=== PATIENT | male | born 1970 | race Caucasian/White ===

== ENCOUNTER 2016-12-12 13:59 | Inpatient (IN) | payer OTHER ==
[~2016-12-12] VITALS: Ht 180.3 cm; Wt 100.1 kg
[~2016-12-12 13:59] MED LIST: ALBU0.086 INH; ALBU0.63 NEB; ALBU8I INH; FLOV44AE IN; LEVO50TA4 PO; LIPI10TA PO; PRED10PA PO; TEGR400T PO
[2016-12-19] MEDS ORDERED: POVIDONE IODINE 7.5% SCRUB 118 ML BOTTLE TOP SCH (05:45)
[2016-12-19] MEDS: EXPAREL PERI-ARTICULAR INJECTION (TOTAL VOL. 60 ML) P-ARTICULR SCH ×4 (05:45→15:03)
[2016-12-19] MEDS: TRANEXAMIC ACID INJ 915 MG in SODIUM CHLORIDE 0.9% INJ 100 ML IV SCH ×2 (05:45→14:45)
[2016-12-19] MEDS ORDERED: DEXAMETHASONE SOD PHOS 20 MG/5 ML VIAL IV PRN (06:00)
[2016-12-19] MEDS ORDERED: INSULIN HUMAN REGULAR 1,000 UNITS/10 ML VIAL SQ PRN (06:00)
[2016-12-19] MEDS ORDERED: METOPROLOL TARTRATE 25 MG TAB PO PRN (06:00)
[2016-12-19] MEDS ORDERED: LACTATED RINGER'S 1000 ML IV SCH (06:00)
[2016-12-19] MEDS ORDERED: SODIUM CHLORID 0.9% 500 ML IV SCH (06:00)
[2016-12-19] MEDS ORDERED: GENTAMICIN SULFATE 80 MG/2 ML VIAL ONE (06:02)
[2016-12-19] MEDS ORDERED: TEGR400T PO (06:03)
[2016-12-19] MEDS ORDERED: ATOR10TA15 PO (06:03)
[2016-12-19] MEDS ORDERED: LEVO50TA4 PO (06:03)
[2016-12-19] MEDS ORDERED: ALBU0.63 NEB (06:03)
[2016-12-19] MEDS ORDERED: ALBU6.7H INH (06:03)
[2016-12-19 06:06] VITALS: BP 153/96; PULSE 82; RESP 20; TEMP 97.9; O2SAT 97
[2016-12-19] MEDS: ceFAZolin 2 GM PREMIX 50 ML IV SCH ×2 (06:18→15:03)
[2016-12-19] MEDS: VANCOMYCIN 1000 MG/NS 250 ML (for <70 kg) IV SCH ×4 (06:19→11:15)
[2016-12-19] MEDS: CHLORHEXIDINE GLUCONATE 4% SOLN 120 ML BTL TOP SCH (06:42)
--- NOTE | 2016-12-19 06:52 | HHI.DCPOC ---
Discharge Care Plan Diagnosis: (1) Osteoarthritis of right hip (2) Status post total hip replacement, right Your Health Problems Are: Difficulty with ADL Goals to Promote Your Health * To prevent worsening of your condition and complications * To maintain your health at the optimal level Directions to Meet Your Goals Take your medications as prescribed Follow your dietary instruction Follow activity as directed Keep your appointments as scheduled Take your immunizations and boosters as scheduled If your symptoms worsen call your PCP, if no PCP go to Urgent Care Center or Emergency Room Smoking is Dangerous to Your Health. Avoid second hand smoke Call the 24-hour hour crisis hotline for domestic abuse at Ari Castellon Dec 19, 2016 06:52
--- NOTE | 2016-12-19 06:53 | HHI.FF ---
Face to Face Verification Diagnosis: (1) Status post total hip replacement, right (2) Osteoarthritis of right hip Physical Therapy Gait training, Transfer training, bed to chair Hip: Total hip Right LE Weight Bearing: WB as tolerated Right LE Range of Motion: Active ROM Nursing Nursing: Maru teaching, Dressing changes Dressing Changes: Daily dressing change I have seen patient Keven Lloyd on 12/19/16. My clinical findings support the need for the requested home health care services because: Limited ability to care for self High risk of falls I certify that my clinical findings support that this patient is homebound because: Post-op weakness Unsteady gait/balance Ari Castellon Dec 19, 2016 06:53
[2016-12-19] MEDS ORDERED: WALKER WHEELS/F1 MIS (06:56)
[2016-12-19] MEDS ORDERED: COMMODE 3-IN-11 MIS (06:56)
[2016-12-19] MEDS ORDERED: RESP: ALBUTEROL 2.5 MG/IPRATROPIUM 0.5 MG NEB (SCH) ONE (09:27)
[2016-12-19] MEDS ORDERED: ONDANSETRON HCL 4 MG/2 ML VIAL IV PUSH ONE (12:12)
[2016-12-19] MEDS ORDERED: NEOSTIGMINE 3 MG/3 ML SYR IV ONE (12:12)
[2016-12-19] MEDS ORDERED: PROPOFOL 200 MG/20 ML AMP IV ONE (12:12)
[2016-12-19] MEDS ORDERED: LACTATED RINGER'S 1000 ML INJ 1,000 ML IV ONE (12:12)
[2016-12-19] MEDS ORDERED: MIDAZOLAM HCL 2 MG/2 ML VIAL ONE (14:11)
[2016-12-19] MEDS ORDERED: ACETAMINOPHEN 1000 MG/100 ML VIAL IV ONE (14:13)
[2016-12-19] MEDS ORDERED: SUGAMMADEX SODIUM 200 MG/2 ML VIAL IV PUSH ONE ×2 (16:15)
--- NOTE | 2016-12-19 16:26 | PD.OP ---
cc: Jaime Cavazos MD Operative Report Date of Surgery: Dec 19, 2016 Preoperative Diagnosis: Right hip avascular necrosis, severe osteoarthritis. Postoperative Diagnosis: Same Procedure: Right total hip arthroplasty Anesthesia: Gen. Surgeon: Jaime Cavazos Dividend Deposit Entry Clerk(s): RIOS Waters The surgical procedure was assisted by my Advanced Registered Nurse Practitioner. My RIGGING [employer] CONTROLS AIRCRAFT MECHANIC presence was necessary throughout this case for the manipulation and positioning of the surgical extremity. My RIGGING AND CONTROLS AIRCRAFT MECHANIC was assisting me throughout the duration of this procedure. The skill set of an Advance Registered Nurse Practitioner was medically necessary to complete this procedure. During the surgical case, the surgical rn was working at the back table and the Advance Registered Nurse Practitioner was directly assisting me. Operation and Findings: IMPLANT DESCRIPTION: 1. [place] Gription Cup, acetabular size 58. 2. [place] AltrX polyethylene, neutral. 4. [place] femoral stem size 13, no collar, high offset. 5. Femoral head/neck ceramic, 36, +5.0. ESTIMATED BLOOD LOSS: 400 cc. JUSTIFICATION FOR PROCEDURE: The patient has end-stage osteoarthritis to the hip. There is an attached conservative measures pathway form in the chart that describes the nonoperative measures that were undertaken prior to consideration of surgical management. The patient understood the risks and benefits of surgical management. See my office notes for further details. PROCEDURE: The patient was brought back to the operative theatre. Adequate anesthesia was obtained. The patient received intravenous vancomycin and Ancef. The patient was carefully placed on the operative table. The lower extremity was prepped and draped in the usual sterile fashion. Fluoroscopic images were obtained. We made a standard anterior incision over the hip. We dissected through the TFL fascia, exposing the anterior capsule. Arthrotomy was performed in a T-shaped fashion. The capsule was tagged with a #2 FiberWire. End-stage arthritis was identified. Osteotomy was performed through the femoral neck exposing the acetabulum. Remnants of the labrum were resected and osteophytes were removed. We sequentially reamed the acetabulum. We trialed the hip and placed the final cup into position. This was done under fluoroscopic guidance to obtain the appropriate inclination and anteversion. A manhole cover was placed into the acetabular component. We then placed the final polyethylene into position and confirmed that it was well seated. Capsular attachments on the calcar and the inner aspect of the greater trochanter were resected. On the proximal aspect of the femur we used a rongeur , box osteotome, canal finder, sequential broaches and lateralizing rasp. We calcar planed the proximal femur. Then thoroughly irrigated the wound. We trialed the hip with the appropriate size stem. We placed the final stem in to position and trialed again. The hip was stable while it was externally rotated 70 degrees when the leg was lowered to the floor. The final head was applied, and final fluoroscopic images were obtained. The wound was thoroughly irrigated again. Interarticular injection of liposomal bupivacaine was given. The capsule was closed with #2 FiberWire and #1 Vicryl. The deep fascia was closed with a #2 Stratafix, followed by 2-0 Vicryl in the skin and pb. Postop plan is to weight-bear as tolerated. DVT prophylaxis will be performed with [place], ALANA castle, early mobilization, and Lovenox followed by aspirin. Jaime Cavazos MD Dec 19, 2016 16:26
[2016-12-19] MEDS ORDERED: NORC5TAB PO (16:27)
[2016-12-19] MEDS ORDERED: ASPI325T PO (16:27)
[2016-12-19] MEDS ORDERED: ENOX40P SQ (16:27)
[2016-12-19] MEDS ORDERED: diphenhydrAMINE HCL 50 MG/ML VIAL IV PRN (16:30)
[2016-12-19] MEDS ORDERED: ACETAMINOPHEN/HYDROcodone 325 MG/5 MG TAB PO PRN (16:30)
[2016-12-19] MEDS ORDERED: Post-op Orders (for Pharmacy) MISC XX ONE (16:30)
[2016-12-19] MEDS ORDERED: ALUMINUM/MAGNESIUM/SIMETH 30 ML CUP PO PRN (16:30)
[2016-12-19] MEDS ORDERED: ONDANSETRON HCL 4 MG/2 ML VIAL IVP PRN (16:30)
[2016-12-19] MEDS ORDERED: SODIUM CHLORIDE 0.9% FLUSH 5 ML FLUSH IVF PRN (16:30)
[2016-12-19] MEDS ORDERED: ZOLPIDEM TARTRATE 5 MG TAB PO PRN (16:30)
[2016-12-19] MEDS ORDERED: BISACODYL 10 MG SUPP PR PRN (16:30)
[2016-12-19] MEDS ORDERED: MORPHINE SULFATE 4 MG/ML INJ IV PUSH PRN (16:30)
[2016-12-19] MEDS ORDERED: MAGNESIUM HYDROXIDE SUSP 30 ML CUP PO PRN (16:30)
[2016-12-19] MEDS ORDERED: ALBUTEROL SULFATE 90 MCG/ACT HFA 8 GM INHALER INH PRN (16:30)
[2016-12-19] MEDS ORDERED: NALOXONE HCL 0.4 MG/ML AMP IV PRN (16:30)
[2016-12-19] MEDS ORDERED: RESP: ALBUTEROL 0.63 MG/3 ML NEB (PRN) NEB (16:30)
[2016-12-19] MEDS ORDERED: DO NOT ADM ANY ANTICOAGULANT DRUGS XX PRN (16:45)
--- NOTE | 2016-12-19 16:51 | RADRPT ---
EXAM DATE/TIME: 12/19/2016 15:03 [facility] COMPARISON: No previous studies available for comparison. INDICATIONS : ORIF Right hip anterior approach. MEDICAL HISTORY : None. SURGICAL HISTORY : None. ENCOUNTER: Subsequent ACUITY: 1 day PAIN SCORE: Non-responsive. LOCATION: Right Hip FINDINGS: There is placement of total hip prosthesis well seated with surgical resection of the femoral head an d neck CONCLUSION: Well-seated total hip prosthesis Wilver Lee MD on December 19, 2016 at 16:49 Board Certified Radiologist. This report was verified electronically.
[2016-12-19] MEDS: SODIUM CHLOR 0.9% 1000 ML INJ 1,000 ML IV SCH (16:55)
[2016-12-19] MEDS ORDERED: fentaNYL CITRATE 250 MCG/5 ML AMP ONE (17:00)
[2016-12-19] MEDS ORDERED: *ONDANSETRON 4 MG VIAL PERIprocedural Use ONLY ONE (17:06)
[2016-12-19] MEDS ORDERED: TRANEXAMIC ACID INJ 915 MG in SODIUM CHLORIDE 0.9% INJ 100 ML IV SCH (17:30)
[2016-12-19] MEDS ORDERED: *morphine SULFATE 8 MG/ML PERIprocedure ONLY ONE (17:39)
--- NOTE | 2016-12-19 17:41 | RADRPT ---
EXAM DATE/TIME: 12/19/2016 17:12 [facility] COMPARISON: HIP RIGHT AP ONLY WO AP PELVIS, December 19, 2016, 15:03. INDICATIONS : Status post ORIF right hip. MEDICAL HISTORY : None. SURGICAL HISTORY : None. ENCOUNTER: Subsequent ACUITY: 1 day PAIN SCORE: Non-responsive. LOCATION: Right Hip FINDINGS: Right total hip prosthesis remains in place well-seated with superficial surgical pb. Pelvis its elf is intact. CONCLUSION: Intact pelvis. Right total hip prosthesis well seated Wilver Lee MD on December 19, 2016 at 17:39 Board Certified Radiologist. This report was verified electronically.
[2016-12-19] MEDS ORDERED: CARBAMAZEPINE 400 MG PO SCH (18:00)
[2016-12-19] MEDS ORDERED: *MEPERIDINE 25 MG INJ VIAL PERIprocedural Use ONLY ONE (18:04)
[2016-12-19] MEDS ORDERED: *PROMETHAZINE 25 MG/ML VIAL PERIprocedural use ONLY ONE (18:09)
[2016-12-19] MEDS: SODIUM CHLORIDE 0.9% FLUSH 5 ML FLUSH IVF SCH (21:00)
[2016-12-19 21:35] VITALS: BP 99/61; PULSE 79; RESP 16; TEMP 97.9; O2SAT 98
[2016-12-19] MEDS: ATORVASTATIN 10 MG TAB PO SCH (22:06)
[2016-12-19] MEDS: carBAMazepine XR 200 MG TAB PO SCH (22:53)
[2016-12-20] VITALS (7 sets, daily range): BP systolic 113–148; BP diastolic 53–69; PULSE 89–115; RESP 16–20; TEMP 97.3–99.5; O2SAT 96–99
[2016-12-20] MEDS: ACETAMINOPHEN/HYDROcodone 325 MG/5 MG TAB PO PRN ×5 (02:03→23:01)
[2016-12-20] MEDS: SODIUM CHLOR 0.9% 1000 ML INJ 1,000 ML IV SCH ×2 (02:30→14:00)
[2016-12-20 05:00] LABS: HEMATOCRIT 36.4 % (39.0-51.0); MEAN CELL VOLUME 86.3 FL (80.0-100.0); MEAN CORPUSCULAR HEMOGLOBIN 29.7 PG (27.0-34.0); MEAN CORPUSCULAR HGB CONC 34.5 % (32.0-36.0); PLATELET COUNT 189 TH/MM3 (150-450); RED BLOOD COUNT 4.22 MIL/MM3 (4.50-5.90); RED CELL DISTRIBUTION WIDTH 13.3 % (11.6-17.2); REVIEW FLAG FINAL; WHITE BLOOD COUNT 9.5 TH/MM3 (4.0-11.0)
[2016-12-20] MEDS: LEVOTHYROXINE SODIUM 50 MCG TAB PO SCH (06:01)
[2016-12-20] MEDS: CHLORHEXIDINE GLUCONATE 4% SOLN 120 ML BTL TOP SCH (06:23)
[2016-12-20] MEDS ORDERED: DEXAMETHASONE SOD PHOS 20 MG/5 ML VIAL IV ONE (07:45)
[2016-12-20] MEDS: carBAMazepine XR 200 MG TAB PO SCH ×3 (10:02→18:55)
[2016-12-20] MEDS: SODIUM CHLORIDE 0.9% FLUSH 5 ML FLUSH IVF SCH ×2 (10:03→23:05)
--- NOTE | 2016-12-20 12:43 | PD.ORT.PN ---
Subjective Post Op Day #: 1 Subjective Remarks Patient resting comfortably in bed with mild to moderate right hip pain. Patient states he is not quite ready for discharge today. Patient wants to work with PT again before being discharged. Objective Vitals Vital Signs Date Time Temp Pulse Resp B/P Pulse Ox O2 Delivery O2 Flow Rate FiO2 12/20/16 12:04 98.1 90 16 124/61 97 12/20/16 08:32 99 21 12/20/16 08:16 98.8 93 16 113/53 96 12/20/16 04:00 97.5 91 20 147/68 96 12/19/16 21:35 97.9 79 16 99/61 98 12/19/16 21:15 85 16 97 Room Air 12/19/16 21:00 97.8 82 16 118/69 97 Room Air 12/19/16 20:00 86 16 116/65 96 Room Air 12/19/16 19:30 84 16 119/66 95 Room Air 12/19/16 19:00 97.8 85 15 120/69 99 Nasal Cannula 2 12/19/16 18:45 87 15 123/70 99 Nasal Cannula 2 12/19/16 18:30 98 15 127/78 99 Nasal Cannula 2 12/19/16 18:15 101 15 127/86 98 Nasal Cannula 2 12/19/16 18:00 102 15 129/88 98 Nasal Cannula 2 12/19/16 17:45 107 15 138/86 98 Nasal Cannula 2 12/19/16 17:44 15 12/19/16 17:30 98.2 109 15 138/92 99 Nasal Cannula 2 12/19/16 17:15 112 14 162/86 100 Nasal Cannula 2 12/19/16 17:00 121 16 158/99 100 Nasal Cannula 2 12/19/16 16:50 98.5 120 15 143/92 97 Nasal Cannula 2 I/O 12/19/16 12/19/16 12/19/16 12/20/16 12/20/16 12/20/16 07:00 15:00 23:00 07:00 15:00 23:00 Intake Total 650 ml 1300 ml 364 ml Output Total 1000 ml 600 ml 300 ml Balance -350 ml 700 ml 64 ml Intake Oral 0 ml 364 ml IV Total 350 ml 300 ml TPN/PPN 300 ml Other 1000 ml Output Urine Total 1000 ml 250 ml 300 ml Estimated Blood Loss 200 ml Other 150 ml Result Diagram: 12/20/16 0420 Imaging Last 24 hours Impressions Hip and Pelvis X-Ray 12/19/16 1623 Signed Impressions: Service Date/Time: Monday, December 19, 2016 17:12 - CONCLUSION: Intact pelvis. Right total hip prosthesis well seated Wilver Lee MD Procedures Right JORDY Objective Remarks The patient's dressing is C/D/I. EHL/TA/G intact. 2+ pedal pulse. Minimal swelling. Calf is soft and nontender. + SILT. Assessment & Plan Ortho Post Op Day #: 1 Problem List: Assessment and Plan POD #1: Right JORDY 1. WBAT RLE 2. Lovenox for DVT prophylaxis 3. Ice to the right hip PRN 4. Anticipatory discharge home with home health on Saturday. Ari Castellon Dec 20, 2016 12:43
[2016-12-20] MEDS: ENOXAPARIN SODIUM 40 MG/0.4 ML SYRINGE SQ SCH (15:43)
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
[2016-12-20] MEDS ORDERED: RESP: ALBUTEROL 2.5 MG/IPRATROPIUM 0.5 MG NEB (PRN) NEB (17:15)
[2016-12-20] MEDS ORDERED: MULTIVITAMINS/MINERALS THERAPEUTIC TAB PO SCH (21:00)
[2016-12-20] MEDS: ATORVASTATIN 10 MG TAB PO SCH (23:01)
[2016-12-20] MEDS: MULTIVITAMIN TAB PO SCH (23:01)
[2016-12-20] MEDS: DOCUSATE SODIUM 100 MG CAP PO SCH (23:01)
[2016-12-21] VITALS: BP 115/62; PULSE 113; RESP 16; TEMP 99.8; O2SAT 96
[2016-12-21] MEDS: ACETAMINOPHEN/HYDROcodone 325 MG/5 MG TAB PO PRN ×4 (04:23→16:14)
[2016-12-21] MEDS: LEVOTHYROXINE SODIUM 50 MCG TAB PO SCH (06:12)
[2016-12-21] MEDS: CHLORHEXIDINE GLUCONATE 4% SOLN 120 ML BTL TOP SCH (06:45)
[2016-12-21 07:09] LABS: HEMATOCRIT 28.1 % (39.0-51.0); MEAN CELL VOLUME 84.6 FL (80.0-100.0); MEAN CORPUSCULAR HGB CONC 35.4 % (32.0-36.0); PLATELET COUNT 141 TH/MM3 (150-450); RED BLOOD COUNT 3.32 MIL/MM3 (4.50-5.90); RED CELL DISTRIBUTION WIDTH 13.1 % (11.6-17.2); REVIEW FLAG FINAL; WHITE BLOOD COUNT 8.4 TH/MM3 (4.0-11.0)
[2016-12-21 08:00] VITALS: BP 138/69; PULSE 100; RESP 24; TEMP 97.8; O2SAT 97
[2016-12-21] MEDS: MULTIVITAMIN TAB PO SCH (08:51)
[2016-12-21] MEDS: DOCUSATE SODIUM 100 MG CAP PO SCH (08:51)
[2016-12-21] MEDS: SODIUM CHLORIDE 0.9% FLUSH 5 ML FLUSH IVF SCH (08:51)
[2016-12-21] MEDS: carBAMazepine XR 200 MG TAB PO SCH ×2 (08:51→12:34)
[2016-12-21] MEDS: SODIUM CHLOR 0.9% 1000 ML INJ 1,000 ML IV SCH ×2 (08:51)
[2016-12-21 12:00] VITALS: BP 135/65; PULSE 109; RESP 24; TEMP 97.8; O2SAT 98
--- NOTE | 2016-12-21 12:52 | HHI.PR ---
Subjective Remarks Patient reports that he is feeling well today. Pain is controlled. He is ready for discharge. Objective Vitals Vital Signs Date Time Temp Pulse Resp B/P Pulse Ox O2 Delivery O2 Flow Rate FiO2 12/21/16 08:00 97.8 100 24 138/69 97 12/21/16 00:00 99.8 113 16 115/62 96 12/20/16 20:20 98 12/20/16 20:00 99.5 115 16 148/69 97 12/20/16 16:30 97.3 89 18 122/60 97 I/O 12/20/16 12/20/16 12/20/16 12/21/16 12/21/16 12/21/16 07:00 15:00 23:00 07:00 15:00 23:00 Intake Total 364 ml 860 ml 240 ml 240 ml Output Total 300 ml 250 ml 410 ml Balance 64 ml 860 ml -10 ml -170 ml Intake Oral 364 ml 860 ml 240 ml 240 ml Output Urine Total 300 ml 250 ml 410 ml # Voids 4 1 # Bowel Movements 0 0 0 Result Diagram: 12/21/16 0625 Imaging Last Impressions Hip and Pelvis X-Ray 12/19/16 1623 Signed Impressions: Service Date/Time: Monday, December 19, 2016 17:12 - CONCLUSION: Intact pelvis. Right total hip prosthesis well seated Wilver Lee MD Hip X-Ray 12/19/16 0000 Signed Impressions: Service Date/Time: Monday, December 19, 2016 15:03 - CONCLUSION: Well- seated total hip prosthesis Wilver Lee MD Objective Remarks GENERAL: This is a well-nourished, well-developed patient, in no apparent distress. CARDIOVASCULAR: Normal rate and regular rhythm without murmurs, gallops, or rubs. RESPIRATORY: Good respiratory efforts. Breath sounds equal and clear to auscultation bilaterally. GASTROINTESTINAL: Abdomen soft, non-tender, non-distended. Normal active bowel sounds MUSCULOSKELETAL: Postop right hip dressing is clean and dry. NEURO: Alert & Oriented x4 to person, place, time, situation. Moves all ext x4 PSYCH: Appropriate mood and affect. A/P Problem List: (1) Osteoarthritis of right hip ICD Code: M16.11 Status: Acute (2) Status post total hip replacement, right ICD Code: Z96.641 Status: Acute Assessment and Plan 46-year-old male with: Osteoarthritis of the right hip status post total hip arthroplasty: - Continue routine postop care per orthopedics. - Pain control. PT. Patient cleared for discharge to home with home health and physical therapy. Asthma: Continue albuterol inhaler as needed. Hypothyroidism: Continue Synthroid Hyperlipidemia: Continue statin Seizure disorder: Continue Tegretol Hospitalist cleared for discharge. Anirudh Aguilar MD Dec 21, 2016 12:52
--- NOTE | 2016-12-21 15:18 | PD.ORT.PN ---
Subjective Post Op Day #: 2 Subjective Remarks Patient resting comfortably in bed with mild right hip pain. Patient states he is ready for discharge home today. Objective Vitals Vital Signs Date Time Temp Pulse Resp B/P Pulse Ox O2 Delivery O2 Flow Rate FiO2 12/21/16 08:00 97.8 100 24 138/69 97 12/21/16 00:00 99.8 113 16 115/62 96 12/20/16 20:20 98 12/20/16 20:00 99.5 115 16 148/69 97 12/20/16 16:30 97.3 89 18 122/60 97 I/O 12/20/16 12/20/16 12/20/16 12/21/16 12/21/16 12/21/16 07:00 15:00 23:00 07:00 15:00 23:00 Intake Total 364 ml 860 ml 240 ml 240 ml Output Total 300 ml 250 ml 410 ml Balance 64 ml 860 ml -10 ml -170 ml Intake Oral 364 ml 860 ml 240 ml 240 ml Output Urine Total 300 ml 250 ml 410 ml # Voids 4 1 # Bowel Movements 0 0 0 Result Diagram: 12/21/16 0625 Imaging Last 24 hours Impressions Hip and Pelvis X-Ray 12/19/16 1623 Signed Impressions: Service Date/Time: Monday, December 19, 2016 17:12 - CONCLUSION: Intact pelvis. Right total hip prosthesis well seated Wilver Lee MD Procedures Right JORDY Objective Remarks The patient's dressing was changed with scant serosanguineous drainage. Incision is well approximated with surgical clips intact. No redness or s/s of infection. EHL/TA/G intact. 2+ pedal pulse. No swelling. Calf is soft and nontender. + SILT. Assessment & Plan Ortho Post Op Day #: 2 Problem List: Assessment and Plan POD #2: Right JORDY 1. WBAT RLE 2. Lovenox for DVT prophylaxis 3. Ice to the right hip PRN 4. Stable for discharge home with home health today. Ari Castellon Dec 21, 2016 15:18
[2016-12-21] MEDS: ENOXAPARIN SODIUM 40 MG/0.4 ML SYRINGE SQ SCH (16:13)
--- NOTE | 2016-12-22 17:16 | HHI.DS ---
Discharge Summary Admission Date Dec 19, 2016 at 05:28 Discharge Date: Dec 21, 2016 Admitting Diagnosis OA of the right hip Status post total hip replacement, right Diagnosis: (1) Status post total hip replacement, right Diagnosis: Principal (2) Osteoarthritis of right hip Diagnosis: Principal Procedures Right JORDY Brief History This is a 46 year old male patient with severe OA of the right hip CBC/BMP: 12/21/16 0625 Significant Findings Laboratory Tests Test 12/20/16 12/21/16 04:20 06:25 Red Blood Count 4.22 MIL/MM3 3.32 MIL/MM3 (4.50-5.90) (4.50-5.90) Hemoglobin 12.5 GM/DL 10.0 GM/DL (13.0-17.0) (13.0-17.0) Hematocrit 36.4 % 28.1 % (39.0-51.0) (39.0-51.0) Platelet Count 141 TH/MM3 (150-450) PE at Discharge The patient's dressing was changed with scant serosanguineous drainage. Incision is well approximated with surgical clips intact. No redness or s/s of infection. EHL/TA/G intact. 2+ pedal pulse. No swelling. Calf is soft and nontender. + SILT. Hospital Course The patient was admitted to the hospital for severe OA of the right hip to have a right JORDY. The patient's surgery went well without complication. The patient had a normal hospital course. The patient is WBAT with the use of a walker. The patient was discharged home with home health and will f/u in the office with Dr. Cavazos in 1-2 weeks. Pt Condition on Discharge: Stable Discharge Disposition: Disch w/ Home Health Serv Discharge Instructions Diet Instructions: As Tolerated, No Restrictions Activities You Can Perform: Weight Bearing as Maryann Activities to Avoid: Strenuous Activity Follow up Referrals: Orthopedics with Jaime Cavazos MD SN[facility]/ with Nurse Seamer [employer]ose New Medications: Aspirin (Aspirin) 325 Mg Tab 325 MG PO DAILY Start Aspirin after Lovenox is completed. Prevent Blood Clot # 30 Ref 0 TAB Commode 3-in-1 (Commode 3-in-1) 1 Mis Mis 1 EA .ROUTE DIRECTED #1 Ref 0 EA Enoxaparin Inj (Lovenox Inj) 40 Mg/0.4 Ml Syr 40 MG SQ DAILY Start Aspirin after Lovenox is completed. Blood Clot Prevention # 10 Ref 0 [place] Hydrocodone-Acetaminophen ([place]) 5-325 mg Tab 1-2 TAB PO Q4H PRN PAIN #60 Ref 0 TAB Walker with Front Wheels (Walker with Front Wheels) 1 Mis Mis 1 EA .ROUTE DIRECTED #1 Ref 0 EA Continued Medications: Albuterol 6.7 GM Inh (Proventil Hfa 6.7 GM Inh) 90 Mcg/Act Aer 1 PUFF INH Q4H PRN SHORTNESS OF BREATH #1 Ref 0 INHALER Albuterol Neb (Albuterol Neb) 0.63 Mg/3 Ml Neb 0.63 MG NEB QID NEB PRN SHORTNESS OF BREATH #125 Ref 0 NEBULE Atorvastatin (Atorvastatin) 10 Mg Tab 10 MG PO HS Cholesterol Management #30 Ref 0 TAB Carbamazepine ER 12 HR (Tegretol-Xr 12 HR) 400 Mg Tab 400 MG PO TID #60 Ref 0 TAB Levothyroxine (Levothyroxine) 50 Mcg Tab 50 MCG PO DAILY Thyroid #30 Ref 0 TAB Ari Castellon Dec 22, 2016 17:16
== END 2016-12-21 16:24 | disposition home health service (06) | DRG 470 ==
LOC: HSDI 12-19 05:28 → N06A 12-19 21:23
PROVIDERS: ADMIT Orthopaedic Surgery; ATTEND Orthopaedic Surgery
PROC: 0SR904A Replacement of Right Hip Joint with Ceramic on Polyethylene Synthetic Substitute, Uncemented, Open Approach (ICD-10-PCS; principal; 2016-12-19 14:14)
DX: M16.11 Unilateral primary osteoarthritis, right hip (principal); M87.88 Other osteonecrosis, other site; J44.9 Chronic obstructive pulmonary disease, unspecified; E78.5 Hyperlipidemia, unspecified; J45.909 Unspecified asthma, uncomplicated; G40.909 Epilepsy, unspecified, not intractable, without status epilepticus; E03.9 Hypothyroidism, unspecified; Z98.2 Presence of cerebrospinal fluid drainage device; Z87.891 Personal history of nicotine dependence
CPT/HCPCS: 73501; 73502; 76000; 85027; 86850; 86900; 86901; 94150; 94664; C1776; C9290; J0131; J0690; J1100; J1580; J1650; J2175; J2250; J2270; J2405; J2550; J2710; J3010; J3370; J7030; J7050; J7120

== ENCOUNTER 2017-05-04 03:32 | Inpatient (IN) | payer OTHER ==
[2017-05-04] VITALS (11 sets, daily range): BP systolic 111–182; BP diastolic 59–104; PULSE 91–140; RESP 15–40; TEMP 98.1–99.6; O2SAT 93–100
[~2017-05-04] VITALS: Ht 180.3 cm; Wt 99.5 kg
[~2017-05-04 03:32] MED LIST changes: -ALBU0.086 INH; +ALBU6.7H INH; -ALBU8I INH; +ASPI325T PO; +ATOR10TA15 PO; +COMMODE 3-IN-11 MIS; +ENOX40P SQ; -FLOV44AE IN; -LIPI10TA PO; +NORC5TAB PO; -PRED10PA PO; +WALKER WHEELS/F1 MIS
[2017-05-04] MEDS ORDERED: SODIUM CHLORIDE 0.9% FLUSH 10 ML FLUSH IVF PRN (03:45)
[2017-05-04] MEDS ORDERED: methylPREDNISolone SOD SUCC 125 MG/2 ML VIAL IVP ONE (03:45)
[2017-05-04] MEDS ORDERED: LIOT5TAB3 PO (03:58)
[2017-05-04 04:10] LABS: AUTOMATED NEUTROPHIL # 5.5 TH/MM3 (1.8-7.7); BASOPHIL % 0.4 % (0.0-2.0); EOSINOPHIL # 0.7 TH/MM3 (0-0.4); EOSINOPHIL % 5.2 % (0.0-4.0); HEMATOCRIT 43.7 % (39.0-51.0); LYMPH % 44.6 % (9.0-44.0); LYMPHOCYTE # 5.9 TH/MM3 (1.0-4.8); MEAN CELL VOLUME 84.7 FL (80.0-100.0); MEAN CORPUSCULAR HEMOGLOBIN 28.7 PG (27.0-34.0); MEAN CORPUSCULAR HGB CONC 33.8 % (32.0-36.0); MONO % 8.6 % (0.0-8.0); NEUT % 41.2 % (16.0-70.0); PLATELET COUNT 237 TH/MM3 (150-450); RED BLOOD COUNT 5.16 MIL/MM3 (4.50-5.90); RED CELL DISTRIBUTION WIDTH 14.6 % (11.6-17.2); WHITE BLOOD COUNT 13.3 TH/MM3 (4.0-11.0)
[2017-05-04] MEDS: RESP: ALBUTEROL 2.5 MG/IPRATROPIUM 0.5 MG NEB (SCH) INH ×2 (04:16→04:17)
--- NOTE | 2017-05-04 04:17 | PD ---
HPI Chief Complaint: Respiratory Distress Time Seen by Provider: 03:45 Travel History International Travel<30 days: No Contact w/Intl Traveler<30days: No Traveled to known affect area: No History of Present Illness HPI 47-year-old male presents by ambulance for shortness of breath. When they arrived on scene they gave him a breathing treatment than he had spasms of his arms and went unconscious. They were bag valve masking him as he came in. While we were drawing up medications patient started to come to and notes he has seizure disorder that he takes Tegretol for. He does not recall recent episode. He does note that he's been short of breath tonight. History limited given clinical condition PFSH Past Medical History Narrative Medical By records Asthma: Yes Blood Disorders: No Cancer: No Cardiovascular Problems: No COPD: Yes Diabetes: No Diminished Hearing: No Endocrine: No Genitourinary: No Hepatitis: No Hiatal Hernia: No Immune Disorder: No Musculoskeletal: Yes (OA) Psychiatric: No Reproductive: No Respiratory: Yes (COPD, ASTHMA, PNEUMOTHORAX hemothorax) Seizures: Yes Sleep Apnea: No Thyroid Disease: Yes Past Surgical History Narrative Surgical by records Abdominal Surgery: Yes (ABDOMINAL hernia, LACERATED LIVER REPAIR) AICD: No Body Medical Devices: MANAGER WIRELESS SHUNT aneurysm clips Cardiac Surgery: Yes (VENOUS MALFORMATION WITH SURGERY 1976) Ear Surgery: No Eye Surgery: No Genitourinary Surgery: Yes (LACERATED KIDNEY ) Gynecologic Surgery: No Joint Replacement: No Neurologic Surgery: Yes (craniotomy/ MANAGER WIRELESS SHUNT ) Oral Surgery: No Pacemaker: No Thoracic Surgery: Yes (CHEST TUBE) Other Surgery: Yes (4 AVM; CEREBRAL HEMATOMA REMOVAL, MANAGER WIRELESS SHUNT) Social History Alcohol Use: No Tobacco Use: No Substance Use: No Allergies-Medications (Allergen,Severity, Reaction): Coded Allergies: Contrast Media (Verified Allergy, Severe, ANAPHYLAXIS, 05/04/17) Iodine (Verified Allergy, Severe, Anaphylaxis, 05/04/17) Shellfish (Verified Allergy, Severe, Anaphylaxis, 05/04/17) Uncoded Allergies: no mri (Adverse Reaction, Mild, 05/04/17) metal throughout body Reported Meds & Prescriptions Reported Meds & Active Scripts Active [place] (Hydrocodone-Acetaminophen) 5-325 mg Tab 1-2 Tab PO Q4H PRN Walker with Front Wheels (Device) 1 Mis Mis 1 Ea .ROUTE DIRECTED Reported Liothyronine (Liothyronine Sodium) 5 Mcg Tab 5 Mcg PO DAILY Levothyroxine (Levothyroxine Sodium) 50 Mcg Tab 50 Mcg PO DAILY Tegretol-Xr 12 HR (Carbamazepine) 400 Mg Tab 400 Mg PO TID Proventil Hfa 6.7 GM Inh (Albuterol Sulfate) 90 Mcg/Act Aer 1 Puff INH Q4H PRN Albuterol Neb (Albuterol Sulfate) 0.63 Mg/3 Ml Neb 0.63 Mg NEB QID NEB PRN Review of Systems Except as stated in HPI: all other systems reviewed are Neg Physical Exam Exam Limitations: Poor Historian Narrative GENERAL: Well-nourished, well-developed patient. SKIN: Warm and dry. HEAD: atraumatic. EYES: No injection or drainage. Pupils equal ENT: No nasal drainage noted. NECK: Supple, trachea midline. CARDIOVASCULAR: Tachycardic rate and regular rhythm RESPIRATORY: Decreased and wheezing bilaterally. No accessory muscle use. GASTROINTESTINAL: Abdomen soft, nondistended. NEUROLOGICAL: Initially unresponsive but then became awake and alert with motor and sensory grossly within normal limits Data Data Last Documented VS Vital Signs Date Time Temp Pulse Resp B/P Pulse Ox O2 Delivery O2 Flow Rate FiO2 05/04/17 03:50 100 BiPAP 100 05/04/17 03:44 140 40 182/104 Orders Complete Blood Count With Diff (05/04/17 03:45) Comprehensive Metabolic Panel (05/04/17 03:45) B-Type Natriuretic Peptide (05/04/17 03:45) Act Partial Throm Time (Ptt) (05/04/17 03:45) Prothrombin Time / Inr (Pt) (05/04/17 03:45) Magnesium (Mg) (05/04/17 03:45) Ckmb (Isoenzyme) Profile (05/04/17 03:45) Troponin I (05/04/17 03:45) Urinalysis - C+S If Indicated (05/04/17 03:45) Influenzae A/B Antigen (05/04/17 03:45) Blood Culture (05/04/17 03:45) Iv Access Insert/Monitor (05/04/17 03:45) Electrocardiogram (05/04/17 03:45) Ecg Monitoring (05/04/17 03:45) Oximetry (05/04/17 03:45) Oxygen Administration (05/04/17 03:45) Chest, Single Ap (05/04/17 03:45) Sodium Chloride 0.9% Flush (Ns Flush) (05/04/17 03:45) Methylprednisolone So Succ Inj (Solumedr (05/04/17 03:45) Albuterol-Ipratropium Neb (Duoneb Neb) (05/04/17 03:45) Resp Bipap / Cpap Non Invas Vt (05/04/17 03:45) Carbamazepine (Tegretol) (05/04/17 03:45) Lactic Acid (05/04/17 04:45) Arterial Blood Gas (Abg) (05/04/17 ) Sodium Chlor 0.9% 1000 Ml Inj (Ns 1000 M (05/04/17 05:30) Admit Order (Ed Use Only) (05/04/17 06:06) Labs Laboratory Tests Test 05/04/17 05/04/17 03:50 05:05 White Blood Count 13.3 TH/MM3 Red Blood Count 5.16 MIL/MM3 Hemoglobin 14.8 GM/DL Hematocrit 43.7 % Mean Corpuscular Volume 84.7 FL Mean Corpuscular Hemoglobin 28.7 PG Mean Corpuscular Hemoglobin 33.8 % Concent Red Cell Distribution Width 14.6 % Platelet Count 237 TH/MM3 Mean Platelet Volume 8.8 FL Neutrophils (%) (Auto) 41.2 % Lymphocytes (%) (Auto) 44.6 % Monocytes (%) (Auto) 8.6 % Eosinophils (%) (Auto) 5.2 % Basophils (%) (Auto) 0.4 % Neutrophils # (Auto) 5.5 TH/MM3 Lymphocytes # (Auto) 5.9 TH/MM3 Monocytes # (Auto) 1.1 TH/MM3 Eosinophils # (Auto) 0.7 TH/MM3 Basophils # (Auto) 0.0 TH/MM3 CBC Comment AUTO DIFF Prothrombin Time 10.6 SEC Prothromb Time International 1.0 RATIO Ratio Activated Partial 24.2 SEC Thromboplast Time Sodium Level 142 MEQ/L Potassium Level 3.7 MEQ/L Chloride Level 107 MEQ/L Carbon Dioxide Level 26.6 MEQ/L Anion Gap 8 MEQ/L Blood Urea Nitrogen 11 MG/DL Creatinine 0.89 MG/DL Estimat Glomerular Filtration 91 ML/MIN Rate Random Glucose 151 MG/DL Calcium Level 8.5 MG/DL Magnesium Level 2.1 MG/DL Total Bilirubin 0.2 MG/DL Aspartate Amino Transf 11 U/L (AST/SGOT) Alanine Aminotransferase 28 U/L (ALT/SGPT) Alkaline Phosphatase 112 U/L Total Creatine Kinase 79 U/L Troponin I LESS THAN 0.02 NG/ML B-Type Natriuretic Peptide 13 PG/ML Total Protein 8.3 GM/DL Albumin 3.9 GM/DL Carbamazepine (Tegretol) Level 13.8 MCG/ML Lactic Acid Level 1.7 mmol/L MDM Medical Decision Making Medical Screen Exam Complete: Yes Emergency Medical Condition: Yes Medical Record Reviewed: Yes (past history confirmed) Interpretation(s) EKG is sinus tachycardia at 130 without STEMI criteria CBC & BMP Diagram 05/04/17 03:50 Last 24 hours Impressions Chest X-Ray 05/04/17 0345 Signed Impressions: Service Date/Time: Saturday, May 04, 2017 04:10 - CONCLUSION: No acute disease. Anson Deluca MD Differential Diagnosis Asthma exacerbation, pneumonia, URI, pneumothorax, seizure disorder, renal failure Narrative Course Will check blood work, chest x-ray and now awake and alert place on BiPAP, dose with Solu-Medrol and DuoNeb's and reevaluate Patient is improving on BiPAP. ABG shows pH 7.34, PCO2 44, PO2 of 117 on current BiPAP settings. Will continue and closely monitor. Patient has not had additional seizure here in Tegretol level is actually high. Patient shows no signs of pneumonia or infection. It appears he has had a severe asthma exacerbation. Patient agrees to admission to the hospital. Critical Care Narrative Aggregate critical care time was 35 minutes. Time to perform other separately billable procedures was not included in the critical care time. My time did not include minutes spent treating any other patients simultaneously or on activities that did not directly contribute to the patient's treatment. The services I provided to this patient were to treat and/or prevent clinically significant deterioration that could result in: respiratory failure I provided critical care services requiring my management, as noted below: Chart data review, documentation time, medication orders and management, vital sign assessments/reviewing monitor data, ordering and reviewing lab tests, ordering and interpreting/reviewing x-rays and diagnostic studies, care of the patient and discussion of the patient with the admitting physicians. Physician Communication Physician Communication dr corbin states to admit to the icu Diagnosis Primary Impression: Asthma exacerbation Additional Impression: Seizure Admitting Information Admitting Physician Requests: Admit Danae Stewart MD May 04, 2017 04:17
[2017-05-04 04:18] LABS: HEMO FLAGS AUTO DIFF
[2017-05-04 04:33] LABS: APTT (PATIENT) 24.2 SEC (24.3-30.1); PROTHROMBIN TIME - PATIENT 10.6 SEC (9.8-11.6)
[2017-05-04 04:36] LABS: ALT (GPT) 28 U/L (12-78); ANION GAP 8 MEQ/L (5-15); AST (GOT) 11 U/L (15-37); BICARBONATE 26.6 MEQ/L (21.0-32.0); BLOOD UREA NITROGEN 11 MG/DL (7-18); CHLORIDE 107 MEQ/L (98-107); GLOMERULAR FILTRATION RATE 91 ML/MIN (>89); MAGNESIUM 2.1 MG/DL (1.5-2.5); POTASSIUM 3.7 MEQ/L (3.5-5.1); SODIUM (NA) 142 MEQ/L (136-145)
[2017-05-04 04:40] LABS: ALKALINE PHOSPHATASE 112 U/L (45-117); TOTAL BILIRUBIN ADULT 0.2 MG/DL (0.2-1.0)
[2017-05-04 04:42] LABS: CREATINE KINASE 79 U/L (39-308)
--- NOTE | 2017-05-04 04:47 | RADRPT ---
EXAM DATE/TIME: 05/04/2017 04:10 [facility] COMPARISON: CHEST SINGLE AP, March 22, 2016, 11:36. INDICATIONS : Pt short of breath. MEDICAL HISTORY : Chronic obstructive pulmonary disease. asthma, Seizures, history of Pneumothorax and hemothorax SURGICAL HISTORY : Craniotomy. ICT ANALYST shunt, Cerebral hematoma removal ENCOUNTER: Initial ACUITY: 1 day PAIN SCORE: 5/10 LOCATION: Bilateral chest FINDINGS: A single view of the chest demonstrates the lungs to be symmetrically aerated without evidence of mas s, infiltrate or effusion. The cardiomediastinal contours are unremarkable. Osseous structures are intact. Overlying ventriculoperitoneal shunt catheter tubing is present. CONCLUSION: No acute disease. Anson Deluca MD on May 04, 2017 at 4:45 Board Certified Radiologist. This report was verified electronically.
[2017-05-04] MEDS ORDERED: SODIUM CHLOR 0.9% 1000 ML INJ 1,000 ML IV ONE (05:30)
[2017-05-04] MEDS ORDERED: LACTULOSE SYRUP 20 GM/30 ML CUP PO PRN (06:15)
[2017-05-04] MEDS ORDERED: MORPHINE SULFATE 4 MG/ML INJ IV PRN (06:15)
[2017-05-04] MEDS ORDERED: ACETAMINOPHEN 325 MG TAB PO PRN (06:15)
[2017-05-04] MEDS ORDERED: MISCELLANEOUS NURSING INFORMATION XX SCH (06:15)
[2017-05-04] MEDS ORDERED: CHLORHEXIDINE GLUCONATE 2 % 1 PACK (2 CLOTHS) TOP PRN (06:15)
[2017-05-04] MEDS ORDERED: RESP: ALBUTEROL 2.5 MG/3 ML NEB (PRN) NEB (06:15)
[2017-05-04] MEDS ORDERED: LORazepam 2 MG/ML VIAL IV PUSH PRN (06:15)
[2017-05-04] MEDS ORDERED: MAGNESIUM HYDROXIDE SUSP 30 ML CUP PO PRN (06:15)
[2017-05-04] MEDS ORDERED: BISACODYL 10 MG SUPP RECTAL PRN (06:15)
[2017-05-04] MEDS ORDERED: SODIUM CHLORIDE 0.9% FLUSH 10 ML FLUSH IV FLUSH PRN (06:15)
[2017-05-04] MEDS ORDERED: SENNOSIDES 8.6 MG TAB PO PRN (06:15)
[2017-05-04] MEDS ORDERED: ONDANSETRON HCL 4 MG/2 ML VIAL IVP PRN (06:15)
[2017-05-04] MEDS: SODIUM CHLOR 0.9% 1000 ML INJ 1,000 ML IV SCH ×2 (06:32→16:07)
[2017-05-04] MEDS: LEVOFLOXACIN 750 MG PREMIX INJ 150 ML IV SCH (06:33)
[2017-05-04 06:51] LABS: BASOPHILS 2 % (0-2); EOSINOPHILS 4 % (0-4); NEUTROPHIL # MANUAL DIFF 5.6 TH/MM3 (1.8-7.7); POLYS (SEG NEUTROPHILS) 42 % (16-70); WBC DIFF SAMPLE 100
[2017-05-04 06:52] LABS: PLATELET ESTIMATE SMEAR NORMAL (NORMAL); PLATELET MORPHOLOGY NORMAL (NORMAL); SCAN/DIFF FINAL DIFF MANUAL
[2017-05-04] MEDS: RESP: ALBUTEROL 2.5 MG/3 ML NEB (SCH) NEB ×4 (07:47→19:57)
[2017-05-04 08:51] LABS: BLOOD, URINE NEG (NEG); GLUCOSE,URINE NEG (NEG); KETONE, URINE NEG (NEG); MUCUS URINE FEW /lpf (OCC); NITRITE,URINE NEG (NEG); PH, URINE 5.5 (5.0-8.5); TRANSITIONAL EPI CELLS, URINE <1 /hpf; URINE COLOR LIGHT-YELLOW (YELLW/STRAW)
[2017-05-04 08:52] LABS: COMMENT (UR) CULT NOT INDICATED; CULTURE IF INDICATED CULT NOT INDICATED
[2017-05-04] MEDS: SODIUM CHLORIDE 0.9% FLUSH 10 ML FLUSH IV FLUSH SCH ×2 (09:00→20:39)
[2017-05-04] MEDS ORDERED: DOCUSATE SODIUM 50 MG/SENNA 8.6 MG TAB PO SCH (09:00)
[2017-05-04] MEDS: guaiFENesin E.R. 600 MG TAB PO SCH ×2 (09:55→20:39)
[2017-05-04] MEDS: BUDESONIDE-FORMOTEROL 160/4.5 MCG INHALER INH SCH ×2 (09:56→20:39)
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
[2017-05-04] MEDS: methylPREDNISolone SOD SUCC 40 MG/1 ML VIAL IV PUSH SCH ×3 (11:35→23:22)
[2017-05-04] MEDS ORDERED: CHLORHEXIDINE GLUCONATE 2 % 1 PACK (2 CLOTHS)(extra cloths) TOPICAL PRN (16:30)
[2017-05-04] MEDS: carBAMazepine XR 200 MG TAB PO SCH (18:27)
--- NOTE | 2017-05-04 19:52 | MB ---
cc: ELIZABETH PALENCIA DATE OF CONSULTATION 05/04/17 REASON FOR CONSULTATION History of seizure disorder. HISTORY OF PRESENT ILLNESS Mr. Lloyd is a nice 47-year-old man who has a history of seizures. He takes Tegretol XR 400milligrams t.i.d. has had no seizures in 10 years. Yesterday he was eating some type of pepper saucer which triggered an asthma attack. He had severe short of breath but no seizure activity. PAST HISTORY He has a brain AVM resected surgically, asthma, hyperlipidemia, hyperthyroidism, seizure disorder, LEATHER COVERER shunt placement. MEDICATIONS Medications are: 1. Cytomel. 2. Synthroid. 3. Tegretol-XR 400 milligrams t.i.d. 4. Symbicort. 5. Mucinex. 6. Albuterol. NEUROLOGIC EXAMINATION VITAL SIGNS: Blood pressure is 122/71, pulse 97, respiratory rate 19, temperature 98.6 degrees. NEURO: Higher cortical functions normal. Cranial nerves II-XII are normal in detail. Motor exam he has 5/5 strength of all groups. There is no drift. Reflexes symmetric. LABORATORY DATA His white count 13,300. Hemoglobin 14.8, hematocrit 43.7%, platelets 237,000. PT 10.6, INR 1, APTT 24.2. Sodium 142, potassium to 3.7, chloride 107, CO2 26.6, BUN is 11, creatinine 0.89. Tegretol level 13.8. IMPRESSION History of seizure, stable on current dose of Tegretol. While his level is on the high side he is tolerating it well, has been on this dose for 10 years with no seizures. Therefore, I would not change his Tegretol. It does not appear he had a recurrent seizure yesterday. MD EDIS Griffith/FELICIANO /5:05 PM /7:41 PM
[2017-05-05] VITALS (7 sets, daily range): BP systolic 98–133; BP diastolic 51–77; PULSE 74–85; RESP 16–17; TEMP 98.5–99.1; O2SAT 97
[2017-05-05] MEDS: SODIUM CHLOR 0.9% 1000 ML INJ 1,000 ML IV SCH ×2 (03:16→11:47)
[2017-05-05] MEDS ORDERED: CHLORHEXIDINE GLUCONATE 2 % 1 PACK (2 CLOTHS) TOP SCH (04:00)
[2017-05-05] MEDS ORDERED: CHLORHEXIDINE GLUCONATE 2 % 1 PACK (2 CLOTHS)(taper/protocol) TOPICAL SCH (04:00)
[2017-05-05] MEDS: methylPREDNISolone SOD SUCC 40 MG/1 ML VIAL IV PUSH SCH ×2 (05:31→11:47)
[2017-05-05] MEDS: LEVOFLOXACIN 750 MG PREMIX INJ 150 ML IV SCH (05:31)
[2017-05-05 06:30] LABS: AUTOMATED NEUTROPHIL # 12.9 TH/MM3 (1.8-7.7); BASOPHIL % 0.1 % (0.0-2.0); HEMATOCRIT 40.5 % (39.0-51.0); HEMO FLAGS DIFF FINAL; LYMPH % 7.1 % (9.0-44.0); MEAN CELL VOLUME 84.9 FL (80.0-100.0); MEAN CORPUSCULAR HEMOGLOBIN 28.2 PG (27.0-34.0); MEAN CORPUSCULAR HGB CONC 33.2 % (32.0-36.0); MONO % 5.1 % (0.0-8.0); NEUT % 87.7 % (16.0-70.0); PLATELET COUNT 196 TH/MM3 (150-450); RED BLOOD COUNT 4.77 MIL/MM3 (4.50-5.90); RED CELL DISTRIBUTION WIDTH 14.4 % (11.6-17.2); WHITE BLOOD COUNT 14.7 TH/MM3 (4.0-11.0)
[2017-05-05 06:57] LABS: ALT (GPT) 27 U/L (12-78); ANION GAP 12 MEQ/L (5-15); AST (GOT) 5 U/L (15-37); BICARBONATE 23.1 MEQ/L (21.0-32.0); BLOOD UREA NITROGEN 13 MG/DL (7-18); CHLORIDE 109 MEQ/L (98-107); GLOMERULAR FILTRATION RATE 92 ML/MIN (>89); POTASSIUM 4.2 MEQ/L (3.5-5.1); SODIUM (NA) 144 MEQ/L (136-145)
[2017-05-05 07:00] LABS: ALKALINE PHOSPHATASE 94 U/L (45-117); TOTAL BILIRUBIN ADULT 0.2 MG/DL (0.2-1.0)
[2017-05-05] MEDS: carBAMazepine XR 200 MG TAB PO SCH ×2 (07:39→13:50)
[2017-05-05] MEDS: guaiFENesin E.R. 600 MG TAB PO SCH (07:40)
[2017-05-05] MEDS: BUDESONIDE-FORMOTEROL 160/4.5 MCG INHALER INH SCH (07:40)
[2017-05-05] MEDS: SODIUM CHLORIDE 0.9% FLUSH 10 ML FLUSH IV FLUSH SCH (07:40)
[2017-05-05] MEDS: RESP: ALBUTEROL 2.5 MG/3 ML NEB (SCH) NEB ×2 (07:44→11:41)
[2017-05-05] MEDS ORDERED: LEVOTHYROXINE SODIUM 50 MCG TAB PO SCH (09:00)
[2017-05-05] MEDS ORDERED: LIOTHYRONINE SODIUM 5 MCG TAB PO SCH (09:00)
--- NOTE | 2017-05-05 09:53 | EKG ---
Date Performed: 05/04/2017 Time Performed: 03:50:40 PTAGE: 47 years EKG: SINUS TACHYCARDIA NONSPECIFIC T-WAVE ABNORMALITY ABNORMAL RHYTHM ECG PREVIOUS TRACING : 03/22/2016 11.33 DOCTOR: Reymundo Serrato Interpretating Date/Time 05/05/2017 09:43:45
[2017-05-05] MEDS ORDERED: ADVA250A INH (12:39)
[2017-05-05] MEDS ORDERED: PRED20 PO (12:39)
--- NOTE | 2017-05-05 12:39 | HHI.PR ---
Objective Vitals Vital Signs Date Time Temp Pulse Resp B/P Pulse Ox O2 Delivery O2 Flow Rate FiO2 05/05/17 08:00 83 17 133/77 97 05/05/17 08:00 80 05/05/17 07:46 97 Nasal Cannula 3.00 05/05/17 07:00 Nasal Cannula 4.00 100 05/05/17 06:00 74 05/05/17 04:00 98.5 76 16 133/66 97 05/05/17 04:00 76 05/05/17 02:00 79 05/05/17 00:00 83 05/05/17 00:00 98.7 83 16 98/51 97 05/04/17 22:00 97 05/04/17 20:00 93 05/04/17 20:00 97 Nasal Cannula 4.00 05/04/17 20:00 99.4 93 16 126/65 97 05/04/17 19:57 97 Nasal Cannula 3.00 05/04/17 16:00 99.6 97 19 122/71 96 I/O 05/04/17 05/04/17 05/04/17 05/05/17 05/05/17 05/05/17 07:00 15:00 23:00 07:00 15:00 23:00 Intake Total 1093 ml 962 ml 1095 ml Output Total 1750 ml 450 ml 2150 ml Balance -657 ml 512 ml -1055 ml Intake Oral 500 ml 240 ml 240 ml IV Total 593 ml 722 ml 855 ml Output Urine Total 1750 ml 450 ml 2150 ml # Voids 1 # Bowel Movements 1 0 0 Result Diagram: 05/05/17 0541 05/05/17 0541 A/P Problem List: (1) Acute asthma exacerbation ICD Code: J45.901 Status: Acute (2) Seizure ICD Code: R56.9 Status: Acute Anirudh Aguilar MD May 05, 2017 12:39
--- NOTE | 2017-05-05 12:40 | HHI.DCPOC ---
Discharge Care Plan Diagnosis: (1) Acute asthma exacerbation Goals to Promote Your Health * To prevent worsening of your condition and complications * To maintain your health at the optimal level Directions to Meet Your Goals Take your medications as prescribed Follow your dietary instruction Follow activity as directed Keep your appointments as scheduled Take your immunizations and boosters as scheduled If your symptoms worsen call your PCP, if no PCP go to Urgent Care Center or Emergency Room Smoking is Dangerous to Your Health. Avoid second hand smoke Call the 24-hour hour crisis hotline for domestic abuse at Anirudh Aguilar MD May 05, 2017 12:39
--- NOTE | 2017-05-05 14:15 | HHI.DS ---
Discharge Summary Admission Date May 04, 2017 at 06:07 Discharge Date: May 05, 2017 Admitting Diagnosis asthma exacerbation (1) Acute asthma exacerbation ICD Code: J45.901 (2) Seizure ICD Code: R56.9 Procedures None Brief History - From Admission 47-year-old male with history of asthma and seizure disorder. Patient reports he was eating soup and put habanero peppers in it. He immediately had a reaction and became short of breath with coughing spasm and eventually lost consciousness. EMS arrived and use [id number]. He immediately came through. On arrival to the emergency room he was thought to be in a severe asthma exacerbation. He was admitted to the ICU. Patient currently reports he is feeling much better. Stable on a nasal cannula. He denies having any seizures. No tongue biting, loss of bowel or bladder functions. He reports he has been compliant with his seizure medications and have not had a seizure over a decade. CBC/BMP: 05/05/17 0541 05/05/17 0541 Significant Findings Laboratory Tests Test 05/04/17 05/04/17 05/05/17 03:50 08:10 05:41 White Blood Count 13.3 TH/MM3 14.7 TH/MM3 (4.0-11.0) (4.0-11.0) Lymphocytes (%) (Auto) 44.6 % 7.1 % (9.0-44.0) (9.0-44.0) Monocytes (%) (Auto) 8.6 % (0.0-8.0) Eosinophils (%) (Auto) 5.2 % (0.0-4.0) Lymphocytes # (Auto) 5.9 TH/MM3 (1.0-4.8) Monocytes # (Auto) 1.1 TH/MM3 (0-0.9) Eosinophils # (Auto) 0.7 TH/MM3 (0-0.4) Activated Partial 24.2 SEC Thromboplast Time (24.3-30.1) Random Glucose 151 MG/DL 121 MG/DL (74-106) (74-106) Aspartate Amino Transf 11 U/L (15-37) 5 U/L (15-37) (AST/SGOT) Troponin I LESS THAN 0.02 NG/ML (0.02-0.05) Total Protein 8.3 GM/DL (6.4-8.2) Carbamazepine (Tegretol) Level 13.8 MCG/ML (4.0-12.0) Urine Mucus FEW /lpf (OCC) Neutrophils (%) (Auto) 87.7 % (16.0-70.0) Neutrophils # (Auto) 12.9 TH/MM3 (1.8-7.7) Chloride Level 109 MEQ/L (98-107) Imaging Last Impressions Chest X-Ray 05/04/17 0345 Signed Impressions: Service Date/Time: Saturday, May 04, 2017 04:10 - CONCLUSION: No acute disease. Anson Deluca MD PE at Discharge GENERAL: This is a well-nourished, well-developed patient, in no apparent distress. CARDIOVASCULAR: Normal rate and regular rhythm without murmurs, gallops, or rubs. RESPIRATORY: Good respiratory efforts. Clear to auscultation bilaterally except for some faint end expiratory wheezing. GASTROINTESTINAL: Abdomen soft, non-tender, non-distended. Normal active bowel sounds MUSCULOSKELETAL: Extremities without cyanosis, or edema. NEURO: Alert & Oriented x4 to person, place, time, situation. Moves all ext x4 PSYCH: Appropriate mood and affect. Pt update on day of discharge Patient reports he is feeling great today. Denies shortness of breath. Anxious to go home. Hospital Course 46-year-old male admitted with acute asthma exacerbation secondary to a reaction to eating hot peppers. The patient was brought in by EMS. He apparently lost consciousness prior to EMS arrival. He was admitted and treated with IV Solu-Medrol, breathing treatments, and supplemental oxygen. Apparently he had a severe reaction triggering a severe asthma attack. He recovered very quickly. He is discharged home on the prednisone taper. Patient advised to avoid hot peppers. He will follow up with pulmonology outpatient. History of seizure disorder: Does not appear that he has had a seizure. He was evaluated by neurology who agreed to continue Tegretol as patient did not look like he had a recurrence of his seizures. He has been stable for the past 10 years. Hypothyroidism: Continue Synthroid Pt Condition on Discharge: Good Discharge Disposition: Discharge Home Discharge Time: <= 30 minutes Discharge Instructions DIET: Follow Instructions for: As Tolerated, No Restrictions Activities you can perform: Regular-No Restrictions Follow up Referrals: PCP Follow-up New Medications: Prednisone (Prednisone) 20 Mg Tab 20 MG PO DIRECTED Take 60 MG daily x 4 days, then 40 MG x 4 days, then 20 MG daily x 4 days. #24 Ref 0 TAB Fluticasone-Salmeterol Inh (Advair Diskus Inh) 250-50 Mcg/Blist Aer 1 PUFF INH BID Rinse mouth after use. #1 Ref 0 INHALER Continued Medications: Albuterol 6.7 GM Inh (Proventil Hfa 6.7 GM Inh) 90 Mcg/Act Aer 1 PUFF INH Q4H PRN SHORTNESS OF BREATH #1 Ref 0 INHALER Albuterol Neb (Albuterol Neb) 0.63 Mg/3 Ml Neb 0.63 MG NEB QID NEB PRN SHORTNESS OF BREATH #125 Ref 0 NEBULE Carbamazepine ER 12 HR (Tegretol-Xr 12 HR) 400 Mg Tab 400 MG PO TID #60 Ref 0 TAB Hydrocodone-Acetaminophen (Jellico) 5-325 mg Tab 1-2 TAB PO Q4H PRN PAIN #60 Ref 0 TAB Levothyroxine (Levothyroxine) 50 Mcg Tab 50 MCG PO DAILY Thyroid #30 Ref 0 TAB Liothyronine (Liothyronine) 5 Mcg Tab 5 MCG PO DAILY Thyroid Supplement #30 Ref 0 TAB Anirudh Aguilar MD May 05, 2017 14:15
== END 2017-05-05 14:30 | disposition home or self-care (01) | DRG 203 ==
LOC: NEPC 03:32 → NEDA 06:07 → HIMN 08:35
PROVIDERS: ADMIT Family Medicine; ATTEND Family Medicine
DX: J45.901 Unspecified asthma with (acute) exacerbation (principal); E03.9 Hypothyroidism, unspecified; T78.1XXA Other adverse food reactions, not elsewhere classified, initial encounter; G40.909 Epilepsy, unspecified, not intractable, without status epilepticus; E78.5 Hyperlipidemia, unspecified; Z98.2 Presence of cerebrospinal fluid drainage device
CPT/HCPCS: 71010; 80053; 80156; 81001; 82550; 83605; 83735; 83880; 84484; 85007; 85025; 85027; 85610; 85730; 87040; 87641; 93005; 94002; 94640; 94664; 96374; J1956; J2920; J2930; J7030; J7613